=== PATIENT | male | born 1990 | race Caucasian/White ===

== ENCOUNTER 2020-06-26 01:47 | Emergency (ER) | payer OTHER ==
[2020-06-26 01:52] VITALS: TEMP 98.3
--- NOTE | 2020-06-26 02:09 | ED ---
Back Pain HPI - General Source: patient Limitations: no limitations <Chante Crespo - Last Filed: 06/26/20 03:05> <Gennaro Kendrick - Last Filed: 06/26/20 04:33> - General Chief Complaint: Back Pain/Injury Stated Complaint: Back pain Time Seen by Provider: 06/26/20 01:54 - History of Present Illness Initial Comments: Patient is a 29-year-old male presenting to the emergency Department with complaints of lower left-sided back pain that started increasing today. Patient states he had this injury about one month ago, he bent over and felt some crack in his back. He went to urgent care, they gave him some pain control, steroids and muscle relaxants and he did feel better for over the past few weeks. Patient states that yesterday and today his pain seems to be increasing, but still the same spot, the left low back. He denies any fevers or chills, no numbness and tingling to his extremities. He states he does have a history of kidney stones but does not remember if this is a same pain or not. He is "unsure if there was blood in his urine." He denies any abdominal pain, nausea or vomiting. He has no further complaints. (Chante Crespo) - Related Data Home Medications Medication Instructions Recorded Confirmed No Known Home Medications 06/26/20 06/26/20 Allergies Allergy/AdvReac Type Severity Reaction Status Date / Time No Known Allergies Allergy Verified 06/26/20 01:52 Review of Systems ROS Other: All systems not noted in ROS Statement are negative. <Chante Crespo - Last Filed: 06/26/20 03:05> ROS Other: All systems not noted in ROS Statement are negative. <Gennaro Kendrick - Last Filed: 06/26/20 04:33> ROS Statement: Those systems with pertinent positive or pertinent negative responses have been documented in the HPI. Past Medical History Past Medical History: No Reported History History of Any Multi-Drug Resistant Organisms: None Reported Past Surgical History: No Surgical Hx Reported Past Psychological History: Depression Smoking Status: Current every day smoker Past Alcohol Use History: None Reported Past Drug Use History: Marijuana <Chante Crespo - Last Filed: 06/26/20 03:05> General Exam Limitations: no limitations <Chante Crespo - Last Filed: 06/26/20 03:05> General appearance: alert, in no apparent distress Head exam: Present: atraumatic, normocephalic, normal inspection Eye exam: Present: normal appearance, PERRL, EOMI. Absent: scleral icterus, conjunctival injection, periorbital swelling ENT exam: Present: normal exam, mucous membranes moist Neck exam: Present: normal inspection. Absent: tenderness, meningismus, lymphadenopathy Respiratory exam: Present: normal lung sounds bilaterally. Absent: respiratory distress, wheezes, rales, rhonchi, stridor Cardiovascular Exam: Present: regular rate, normal rhythm, normal heart sounds. Absent: systolic murmur, diastolic murmur, rubs, gallop, clicks GI/Abdominal exam: Present: soft, normal bowel sounds. Absent: distended, tenderness, guarding, rebound, rigid Extremities exam: Present: normal inspection, full ROM, normal capillary refill. Absent: tenderness, pedal edema, joint swelling, calf tenderness Back exam: Present: normal inspection Neurological exam: Present: alert, oriented X3, CN II-XII intact Psychiatric exam: Present: normal affect, normal mood Skin exam: Present: warm, dry, intact, normal color. Absent: rash <Gennaro Kendrick - Last Filed: 06/26/20 04:33> - General Exam Comments Initial Comments: GENERAL: Patient is well-developed and well-nourished. Patient is nontoxic and in no acute distress. HEAD: Atraumatic, normocephalic. EYES: Pupils equal round and reactive to light, extraocular movements intact, sclera anicteric, conjunctiva are normal. Eyelids were unremarkable. ENT: TMs normal, nares patent, oropharynx clear without exudates. Moist mucous membranes. NECK: Normal range of motion, supple without lymphadenopathy or JVD. LUNGS: Unlabored respirations. Breath sounds clear to auscultation bilaterally and equal. No wheezes rales or rhonchi. HEART: Regular rate and rhythm without murmurs, rubs or gallops. ABDOMEN: Soft, nontender, normoactive bowel sounds. No guarding, no rebound. No masses appreciated. : Deferred MUSCULOSKELETAL: Normal extremities with adequate strength and normal range of motion, no pitting or edema. No clubbing or cyanosis. Patient has pain with palpation in the lumbar paraspinals, left low back. He has full trunk range of motion. No numbness or tingling into the lower extremities, neurovascular intact bilateral lower extremity's. NEUROLOGICAL: Patient is alert and oriented x 3. Motor and sensory are also intact. Cranial nerves II through XII grossly intact. Symmetrical smile. Normal speech, normal gait. PSYCH: Normal mood, normal affect. SKIN: Warm, Dry, normal turgor, no rashes or lesions noted. (Chante Crespo) Course <Chante Crespo - Last Filed: 06/26/20 03:05> <Gennaro Kendrick - Last Filed: 06/26/20 04:33> Vital Signs 06/26/20 01:50 Temperature 98.3 F Pulse Rate 72 Respiratory 20 Rate Blood Pressure 159/84 O2 Sat by Pulse 95 Oximetry - Reevaluation(s) Reevaluation #1: 06/26/20 03:05 Pt care given to Dr. Kendrick at shift change. (Chante Crespo) Reevaluation #2: 06/26/20 04:32 Patient symptoms significantly improved (Gennaro Kendrick) Reevaluation #3: 06/26/20 04:32 Patient informed of results questions answered (Gennaro Kendrick) Medical Decision Making - Lab Data Result diagrams: 06/26/20 03:11 06/26/20 03:11 - Radiology Data Radiology results: report reviewed (CT head and pelvis positive for kidney stone), image reviewed <Gennaro Kendrick - Last Filed: 06/26/20 04:33> - Medical Decision Making 29 male DF for evaluation patient Dese for evaluation regards to severe back pain left flank pain. Positive kidney stone patient will give follow-up for urology pain control symptomatic therapy. Patient can be discharged (Kannan Kendrick) - Lab Data Lab Results 06/26/20 06/26/20 06/26/20 Range/Units 02:14 03:11 03:11 WBC 13.9 H (3.8-10.6) k/uL RBC 4.88 (4.30-5.90) m/uL Hgb 14.7 (13.0-17.5) gm/dL Hct 44.0 (39.0-53.0) % MCV 90.0 (80.0-100.0) fL MCH 30.0 (25.0-35.0) pg MCHC 33.3 (31.0-37.0) g/dL RDW 12.9 (11.5-15.5) % Plt Count 290 (150-450) k/uL MPV 6.8 Neutrophils % 77 % Lymphocytes % 13 % Monocytes % 7 % Eosinophils % 1 % Basophils % 0 % Neutrophils # 10.7 H (1.3-7.7) k/uL Lymphocytes # 1.9 (1.0-4.8) k/uL Monocytes # 0.9 (0-1.0) k/uL Eosinophils # 0.2 (0-0.7) k/uL Basophils # 0.1 (0-0.2) k/uL Sodium 140 (137-145) mmol/L Potassium 4.1 (3.5-5.1) mmol/L Chloride 105 (98-107) mmol/L Carbon Dioxide 26 (22-30) mmol/L Anion Gap 9 mmol/L BUN 15 (9-20) mg/dL Creatinine 1.22 (0.66-1.25) mg/dL Est GFR (CKD-EPI)AfAm >90 (>60 ml/min/1.73 sqM) Est GFR (CKD-EPI)NonAf 79 (>60 ml/min/1.73 sqM) Glucose 110 H (74-99) mg/dL Calcium 9.6 (8.4-10.2) mg/dL Total Bilirubin 0.4 (0.2-1.3) mg/dL AST 35 (17-59) U/L ALT 37 (4-49) U/L Alkaline Phosphatase 82 (38-126) U/L Total Protein 7.3 (6.3-8.2) g/dL Albumin 4.5 (3.5-5.0) g/dL Urine Color Yellow Urine Appearance Clear (Clear) Urine pH 5.5 (5.0-8.0) Ur Specific [place] 1.029 (1.001-1.035) Urine Protein Trace H (Negative) Urine Glucose (UA) Negative (Negative) Urine Ketones Trace H (Negative) Urine Blood Moderate H (Negative) Urine Nitrite Negative (Negative) Urine Bilirubin Negative (Negative) Urine Urobilinogen <2.0 (<2.0) mg/dL Ur Leukocyte Esterase Negative (Negative) Urine RBC 107 H (0-5) /hpf Urine WBC 1 (0-5) /hpf Urine Mucus Rare H (None) /hpf Disposition <Chante Crespo - Last Filed: 06/26/20 03:05> Is patient prescribed a controlled substance at d/c from ED?: No <Gennaro Kendrick - Last Filed: 06/26/20 04:33> Clinical Impression: Left ureteral stone Disposition: HOME SELF-CARE Condition: Good Instructions (If sedation given, give patient instructions): Kidney Stones (ED) Referrals: Emeka Pena MD [STAFF PHYSICIAN] - 1-2 days
[2020-06-26] MEDS ORDERED: KETOROLAC 15 MG/ML 1 ML VIAL IM STA (02:26)
[2020-06-26 02:48] LABS: Appearance,Urine Clear (Clear); Bilirubin,Urine Negative (Negative); Blood,Urine Moderate (Negative); Color,Urine Yellow; Glucose,Urine (UA) Negative (Negative); Ketones,Urine Trace (Negative); Leukocyte Esterase,Urine Negative (Negative); Mucus,Urine Rare /hpf; Nitrite,Urine Negative (Negative); PH, Urine 5.5 (5.0-8.0); Protein,Urine Trace (Negative); RBC,Urine 107 /hpf (0-5); Specific Gravity,Urine 1.029 (1.001-1.035); Urobilinogen,Urine <2.0 mg/dL (<2.0); WBC,Urine 1 /hpf (0-5)
[2020-06-26] MEDS ORDERED: KETOROLAC 15 MG/ML 1 ML VIAL IVP STA (02:57)
[2020-06-26] MEDS ORDERED: SODIUM CHLORIDE 0.9% 1,000 ML IV STA (02:57)
[2020-06-26] MEDS ORDERED: MORPHINE SULFATE 4 MG/ML SYRINGE IVP STA (03:09)
[2020-06-26 03:23] LABS: Basophils # (A) 0.1 k/uL (0-0.2); Basophils % (A) 0 %; Eosinophils # (A) 0.2 k/uL (0-0.7); Eosinophils % (A) 1 %; HGB 14.7 gm/dL (13.0-17.5); Lymphocytes # (A) 1.9 k/uL (1.0-4.8); Lymphocytes % (A) 13 %; MCHC 33.3 g/dL (31.0-37.0); Mean Platelet Volume 6.8; Monocytes # (A) 0.9 k/uL (0-1.0); Monocytes % (A) 7 %; Neutrophils # (A) 10.7 k/uL (1.3-7.7); Neutrophils % (A) 77 %; Platelet Count 290 k/uL (150-450); RBC 4.88 m/uL (4.30-5.90); RDW 12.9 % (11.5-15.5); WBC 13.9 k/uL (3.8-10.6)
--- NOTE | 2020-06-26 03:52 | CT ---
EXAM: CT Abdomen and Pelvis Without Intravenous Contrast CLINICAL HISTORY: ITS.REASON CT Reason: abdominal pain TECHNIQUE: Axial computed tomography images of the abdomen and pelvis without intravenous contrast. CTDI is 12.9 mGy and DLP is 779 mGy-cm. This CT exam was performed using one or more of the following dose reduction techniques: automated exposure control, adjustment of the mA and/or kV according to patient size, and/or use of iterative reconstruction technique. COMPARISON: No relevant prior studies available. FINDINGS: Lung bases: Unremarkable. No mass. No consolidation. ABDOMEN: Liver: Unremarkable. Gallbladder and bile ducts: Unremarkable. No calcified stones. No ductal dilation. Pancreas: Unremarkable. No ductal dilation. Spleen: Unremarkable. No splenomegaly. Adrenals: Unremarkable. No mass. Kidneys and ureters: 6 mm obstructing left distal ureteral stone with moderate left hydroureteronephrosis and asymmetric left perinephric stranding. Nonobstructing left sided renal stones measuring up to 4 mm in the left interpolar region. No obstructing stones. No hydronephrosis. Stomach and bowel: Unremarkable. No obstruction. No mucosal thickening. PELVIS: Appendix: No findings to suggest acute appendicitis. Bladder: Unremarkable. No stones. Reproductive: Unremarkable as visualized. ABDOMEN and PELVIS: Intraperitoneal space: Unremarkable. No free air. No significant fluid collection. Bones/joints: No acute fracture. No dislocation. Soft tissues: Unremarkable. Vasculature: Unremarkable. No abdominal aortic aneurysm. Lymph nodes: Unremarkable. No enlarged lymph nodes. IMPRESSION: 1. 6 mm obstructing left distal ureteral stone with moderate left hydroureteronephrosis and asymmetric left perinephric stranding. 2. Nonobstructing left sided renal stones measuring up to 4 mm in the left interpolar region.
[2020-06-26 04:05] LABS: ALT 37 U/L (4-49); AST 35 U/L (17-59); African American GFR (CKD) >90 (>60 ml/min/1.73 sqM); Albumin 4.5 g/dL (3.5-5.0); Alkaline Phosphatase 82 U/L (38-126); Anion Gap 9 mmol/L; Blood Urea Nitrogen 15 mg/dL (9-20); Calcium 9.6 mg/dL (8.4-10.2); Carbon Dioxide 26 mmol/L (22-30); Chloride 105 mmol/L (98-107); Glucose 110 mg/dL (74-99); Non-African American GFR(CKD) 79 (>60 ml/min/1.73 sqM); Potassium 4.1 mmol/L (3.5-5.1); Sodium 140 mmol/L (137-145); Total Bilirubin 0.4 mg/dL (0.2-1.3); Total Protein 7.3 g/dL (6.3-8.2)
[2020-06-26] MEDS ORDERED: TAMSULOSIN 0.4 MG CAP.ER.24H PO STA (04:31)
[2020-06-26] MEDS ORDERED: Acetaminophen-Codeine 300-30mg TAB PO STA (04:31)
[2020-06-26] MEDS ORDERED: IBUPROFEN 600 MG STARTER PACK 4 TAB BTL PO STA (04:31)
[2020-06-26] MEDS ORDERED: ACET/COD 300 MG/30 MG STARTER PACK 6 TAB BTL PO STA (04:31)
[2020-06-26 05:07] VITALS: BP 135/86; PULSE 65; RESP 16
== END 2020-06-26 05:11 | disposition home or self-care (01) ==
LOC: EC 01:47
DX: N13.2 Hydronephrosis with renal and ureteral calculous obstruction (principal); F17.200 Nicotine dependence, unspecified, uncomplicated
CPT/HCPCS: 36415; 80053; 85025; 81001; 74176; 99284; 96374; 96375; 96361 ×2; 96372; J2270; J1885

== ENCOUNTER 2023-09-10 11:10 | Emergency (ER) | payer OTHER, BC ==
[2023-09-10 11:17] VITALS: RESP 18
[2023-09-10] MEDS: TOPICAL SKIN ADHESIVE 1 EACH AMP TOPICAL ONE (11:48)
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
[2023-09-10 13:11] VITALS: BP 145/82; PULSE 64; TEMP 97.8
== END 2023-09-10 15:04 | disposition home or self-care (01) ==
LOC: EC 11:10
DX: S01.112A Laceration without foreign body of left eyelid and periocular area, initial encounter (principal); F17.290 Nicotine dependence, other tobacco product, uncomplicated; W22.8XXA Striking against or struck by other objects, initial encounter; Y99.0 Civilian activity done for income or pay
CPT/HCPCS: 12011; 70450; 99283